=== PATIENT | female | born 1960 | race Caucasian/White ===

== ENCOUNTER 2020-09-29 19:54 | Emergency (ER) | payer OTHER ==
[~2020-09-29] VITALS: Ht 175.3 cm; Wt 76.8 kg
[2020-09-29] MEDS ORDERED: LEXA1TAB2 PO (20:50)
[2020-09-30 00:29] VITALS: BP 148/80
--- NOTE | 2020-09-30 16:56 | REP ---
INDICATION: PAIN AND SWELLING. Repeat dictation. Preliminary report is provided at the time of the exam by debby MOYA. COMPARISON: None. TECHNIQUE: Four views of the right foot. FINDINGS: Four views of the right foot demonstrate minimal soft tissue swelling at the 1st MTP joint.. No fracture or subluxation is seen. No opaque foreign body noted. Bones, joints, and soft tissues are otherwise unremarkable. IMPRESSION: Minimal soft tissue swelling at the 1st MTP joint. Otherwise negative. No acute bony abnormality.. <Electronically signed by Arnaud Parr > 09/30/20 1921
--- NOTE | 2020-09-30 16:58 | REP ---
INDICATION: slipped on stairs, pain and swelling. Repeat dictation. Preliminary report is provided at the time of the exam by debby GARRISON. COMPARISON: None. TECHNIQUE: Four views of the right ankle are provided. FINDINGS: Four views of the right ankle demonstrate avulsion chip fracture from the distal fibular tip with overlying soft tissue swelling. Ankle mortise is intact. No tibial fracture is appreciated. There is a small bone island in the posterior aspect of the distal tibia. Otherwise negative. IMPRESSION: Distal fibular avulsion chip fracture with associated soft tissue swelling. <Electronically signed by Arnaud Parr > 09/30/20 1955
== END 2020-09-30 01:30 | disposition home or self-care (01) ==
LOC: M ED 19:54
DX: S82.61XA Displaced fracture of lateral malleolus of right fibula, initial encounter for closed fracture (principal); S93.401A Sprain of unspecified ligament of right ankle, initial encounter; S93.601A Unspecified sprain of right foot, initial encounter; X50.9XXA Other and unspecified overexertion or strenuous movements or postures, initial encounter; Y92.018 Other place in single-family (private) house as the place of occurrence of the external cause; F41.9 Anxiety disorder, unspecified; Z79.899 Other long term (current) drug therapy

== ENCOUNTER 2021-11-26 18:27 | Emergency (ER) | payer OTHER ==
[~2021-11-26] VITALS: Ht 175.3 cm; Wt 77.3 kg
[~2021-11-26 18:27] MED LIST: LEXA1TAB2 PO
[2021-11-26 21:38] VITALS: BP 137/87
== END 2021-11-26 21:40 | disposition home or self-care (01) ==
LOC: M ED 18:27
DX: S13.4XXA Sprain of ligaments of cervical spine, initial encounter (principal); V40.6XXA Car passenger injured in collision with pedestrian or animal in traffic accident, initial encounter; F41.9 Anxiety disorder, unspecified; R93.89 Abnormal findings on diagnostic imaging of other specified body structures

== ENCOUNTER → 2023-08-18 | Outpatient (CLI) | payer OTHER ==
[~2023-08-18] VITALS: Ht 172.7 cm; Wt 68.0 kg
[~2023-08-18] MED LIST changes: +FOLI400T13 PO; +LIDOCAINE 1% MDV 20ML VIAL As Ordered ONE; +LIDOCAINE W/EPINEPHRINE 1% 20ML VIAL As Ordered ONE; +MIDAZOLAM INJ 2MG/2ML VIAL As Ordered ONE; +THERTAB52 PO; +ceFAZolin 2 GM/D5W 50 ML IV BAG As Ordered ONE; +fentaNYL 100 MCG/2 ML INJECTION As Ordered ONE
[2023-08-18 13:18] VITALS: TEMP 97.9
[2023-08-18 13:49] LABS: BASO # 0.1 10^3/uL (0.0-0.2); BASO % 0.9 % (0.0-1.0); EOS # 0.1 10^3/uL (0.0-0.5); EOS % 1.3 % (0.0-3.0); HEMATOCRIT 30.8 % (36.0-47.0); HEMOGLOBIN 9.7 g/dl (12.0-15.5); LYMPH # 1.1 10^3/uL (1.5-5.0); LYMPH % 20.4 % (24.0-44.0); MEAN CORPUSCULAR HGB CONC 31.5 g/dl (32.0-36.5); MONO # 0.7 10^3/uL (0.0-0.8); MONO % 13.1 % (2.0-8.0); NEUTROPHILS # 3.6 10^3/uL (1.5-8.5); NEUTROPHILS % 63.6 % (36.0-66.0); PLATELET COUNT, AUTOMATED 430 10^3/uL (150-450); RED BLOOD COUNT 3.46 10^6/uL (4.00-5.40); WHITE BLOOD COUNT 5.6 10^3/uL (4.0-10.0)
[2023-08-18 14:04] LABS: INR 1.03; PROTHROMBIN TIME 13.2 SECONDS (12.5-14.5)
[2023-08-18] MEDS: ceFAZolin SOD 2 GM in IV 1 EA IV ONE (14:38)
[2023-08-18] MEDS: NS 1,000 ML IV SCH (14:38)
[2023-08-18 16:15] VITALS: BP 127/70; O2SAT 99
== END ==
LOC: M IRPRO 13:03
PROVIDERS: ATTEND Internal Medicine Hematology & Oncology
DX: C34.90 Malignant neoplasm of unspecified part of unspecified bronchus or lung (principal)
CPT/HCPCS: 36561; 85025; 85610; 99152; 99153; C1769; J0690; J2250; J3010